=== PATIENT | male | born 1960 | race Caucasian/White ===

== ENCOUNTER 2017-02-10 08:05 | Emergency (ER) | payer OTHER ==
--- NOTE | ~2017-02-10 | ER ---
PATIENT'S NAME: SHYLA ALCOCER [facility] AGE: 56 Y [address] ROOM: [place] [id number] LOCATION: [facility] ADMIT DATE: 02/10/2017 ER/Outpatient Report DISCHARGE DATE: 02/10/2017 FAMILY PHYSICIAN: Miguel Pina MD ATTENDING PHYSICIAN: Luis Juárez CHIEF COMPLAINT: Right flank pain. HISTORY OF PRESENT ILLNESS: The patient states that he was woken up early this morning with pain in his right side and back. He states this feels like prior kidney stones that he had on the other side. It started around 0430 hours. He took some old pain medicine, but that did not seem to help. He has had some nausea and has vomited several times this morning with the pain. He denies any dysuria, fevers, or chills, but states the pain does radiate down towards his right scrotum. PAST MEDICAL HISTORY: Documented on the record and reviewed by me. SOCIAL HISTORY: Documented on the record and reviewed by me. MEDICATIONS: Documented on the record and reviewed by me. ALLERGIES: DOCUMENTED ON THE RECORD AND REVIEWED BY ME. REVIEW OF SYSTEMS: All systems were reviewed and negative except as noted in the HPI. PHYSICAL EXAMINATION: VITAL SIGNS: Blood pressure 155/71, pulse is 62, respiratory rate is 22, temperature 96.8, SpO2 is 97% on room air. Pain is rated at 10/10. GENERAL: Age-appropriate male, obviously uncomfortable, resting on the exam table on his left side. He is otherwise doing okay. NEURO: The patient is awake and alert. GCS is 15. No focal deficits on exam. HEENT: Normocephalic and atraumatic. Eyes are PERRL. Oropharynx is clear. NECK: Supple. Trachea is midline. CHEST/HEART: Regular rate and rhythm with no murmurs. LUNGS: Clear to auscultation bilaterally with no rhonchi, wheezes, or rales. ABDOMEN: Soft, nontender, and nondistended. No rebound or guarding. PATIENT'S NAME: SHYLA ALCOCER [facility] AGE: 56 Y [address] ROOM: [place], [place] [address] LOCATION: [facility] ADMIT DATE: 02/10/2017 ER/Outpatient Report DISCHARGE DATE: 02/10/2017 FAMILY PHYSICIAN: Miguel Pina MD ATTENDING PHYSICIAN: Luis Juárez BACK: Nontender to palpation throughout. There is no actual tenderness over the right flank region, but he does state that, that is the location of his pain, but pressing does not make it worse. EXTREMITIES: Warm and well perfused. No other obvious abnormalities. SKIN: Warm, dry, and intact. LABORATORY DATA AND X-RAYS: Urinalysis with 25 leukocytes, 150 blood. Micro of 2-5 wbc's, 50-100 rbc's, 5- 10 epithelial cells. No bacteria. CMS is notable for hyponatremia at 148. Potassium 3.8, chloride is 113, glucose is 120, creatinine is 1.2. GFR is greater than 60. LFTs are unremarkable. CBC is notable for white count of 15.2, hemoglobin of 15.9. Lactate is 2.3. CT scan of the abdomen reveals a right 4 mm [id number] obstructing stone. EMERGENCY DEPARTMENT COURSE: The patient was seen and evaluated. A kidney stone most likely. CT scan confirms. Urinalysis is not consistent with infection. No evidence of renal compromise at this time. The patient was given fluids, Zofran, and Toradol with complete resolution of all symptoms. I encouraged fluids. He will continue on Flomax that he has at home. He was given a strainer and he will follow up in 2 days with his primary care physician if it has not passed at that time. All questions were answered and the patient was discharged in good condition. MD SONNY FREGOSO/modl /[id number] d: 02/11/17 1001 t: 02/22/17 1732, OUTPATIENT REPORT
[2017-02-10 08:32] LABS: BASOPHIL % 0.3 %; EOSINOPHIL % 0.2 %; HEMATOCRIT 45.7 % (37.0-53.0); HEMOGLOBIN 15.9 g/dL (12.0-17.0); IMMATURE GRANULOCYTE % 0.2 %; LYMPHOCYTE % 6.8 %; MCHC 34.8 gm/dL (32.0-36.5); MONOCYTE # 0.8 K/uL (0.0-1.0); MONOCYTE % 5.1 %; MPV 11.6 fl (9.4-12.4); NEUTROPHIL # (ANC) 13.3 K/uL (1.4-9.0); NEUTROPHIL % 87.4 %; NRBC % 0 /100WBC (0-0.00); PLATELET COUNT 149 K/uL (150-450); RBC 4.97 M/uL (4.00-6.00); RDW-CV 12.6 % (11.9-14.6); WBC 15.2 K/uL (4.0-11.0)
[2017-02-10 08:50] LABS: BILIRUBIN URINE NEGATIVE (NEGATIVE); BLOOD URINE 150 /UL (NEGATIVE); COLOR URINE YELLOW (YELLOW); GLUCOSE URINE NEGATIVE (NEGATIVE); KETONE URINE 15 mg/dL (NEGATIVE); LEUKOCYTES URINE 25 /UL (NEGATIVE); NITRITE URINE NEGATIVE (NEGATIVE); PROTEIN URINE NEGATIVE (NEGATIVE); TURBIDITY URINE CLEAR (CLEAR); UROBILINOGEN URINE NORMAL (NORMAL)
[2017-02-10 08:53] LABS: ALK PHOS 66 IU/L (33-138); ALT 35 IU/L (12-78); ANION GAP 13.8 (10.0-19.0); AST 23 IU/L (10-40); BLOOD UREA NITROGEN 21 mg/dL (6-24); CALCIUM 8.8 mg/dL (8.5-10.5); CHLORIDE 113 mMol/L (96-110); CO2 25 mMol/L (22-32); CREATININE 1.2 mg/dL (0.6-1.3); ESTIMATED GFR (MDRD EQUATION) > 60; POTASSIUM 3.8 mMol/L (3.7-5.1); TOTAL BILIRUBIN 0.7 mg/dL (0.0-1.5); TOTAL PROTEIN 7.7 g/dL (6.0-8.4)
[2017-02-10 08:58] LABS: RBC URINE 50-100 #/HPF (NEGATIVE)
[2017-02-10 08:58] LABS: SODIUM 148 mMol/L (135-145)
[2017-02-10 08:59] LABS: AMORPHOUS URINE 1+ (NEGATIVE); BACTERIA URINE NEGATIVE (NEGATIVE); MUCUS URINE 1+ (NEGATIVE)
== END 2017-02-10 09:33 | disposition disaster alternative care site (69) ==
LOC: GMED 08:05
PROVIDERS: Emergency Medicine
DX: N13.2 Hydronephrosis with renal and ureteral calculous obstruction (principal); Z98.890 Other specified postprocedural states; Z79.899 Other long term (current) drug therapy
CPT/HCPCS: J1885; J2405